=== PATIENT | female | born 1975 | race Caucasian/White ===

== ENCOUNTER 2019-10-13 19:09 | Emergency (ER) | payer MEDICAID ==
[~2019-10-13] VITALS: Ht 170.2 cm; Wt 144.2 kg
[2019-10-13 19:50] VITALS: BP 138/78
--- NOTE | 2019-10-13 20:43 | NUR ---
given dc instruction and undersood pt up ambulated to check out
== END 2019-10-13 20:46 | disposition home or self-care (01) ==
LOC: ED 20:15
DX: M25.571 Pain in right ankle and joints of right foot (principal); M79.89 Other specified soft tissue disorders; K21.9 Gastro-esophageal reflux disease without esophagitis
CPT/HCPCS: 99281

== ENCOUNTER 2019-11-10 21:42 | Emergency (ER) | payer MEDICAID ==
[~2019-11-10] VITALS: Ht 170.2 cm; Wt 143.3 kg
[2019-11-10 23:25] LABS: MICROSCOPIC NOT IND
[2019-11-11 01:17] LABS: BASOPHILS # (AUTO) 0.04 x10^3/uL (0-0.1); BASOPHILS % (AUTO) 1 % (0-1); EOSINOPHILS # (AUTO) 0.15 x10^3/uL (0-0.4); EOSINOPHILS % (AUTO) 2 % (1-7); LYMPHOCYTES # (AUTO) 2.12 x10^3/uL (1-3.4); LYMPHOCYTES % (AUTO) 29 % (22-44); MD NO; MEAN CORPUSCULAR HEMOGLOBIN 25.9 pg (27.0-34.8); MEAN CORPUSCULAR HGB CONC 31.8 g/dL (32.4-35.8); MEAN CORPUSCULAR VOLUME 81.3 fL (80-100); MEAN PLATELET VOLUME 9.9 fL (7.4-10.4); MONOCYTES # (AUTO) 0.45 x10^3/uL (0.2-0.8); MONOCYTES % (AUTO) 6 % (2-9); NEUTROPHILS # (AUTO) 4.46 x10^3/uL (1.8-6.8); NEUTROPHILS % (AUTO) 62 % (42-75); PLATELET COUNT 191 x10^3/uL (130-400); RED BLOOD COUNT 5.04 x10^6/uL (3.82-5.3); RED CELL DISTRIBUTION WIDTH 15.7 % (9.6-15.2)
[2019-11-11 01:26] LABS: ALBUMIN 3.5 g/dL (3.4-5.0); ANION GAP 6 mmol/L (5-15); CALCIUM 9.5 mg/dL (8.5-10.1); CHLORIDE 105 mmol/L (98-107)
[2019-11-11 01:32] LABS: ALANINE AMINOTRANSFERASE 55 U/L (12-78); ALKALINE PHOSPHATASE 150 U/L (45-117); BILIRUBIN,TOTAL 0.5 mg/dL (0.2-1.0); CREATININE 0.75 mg/dL (0.55-1.02)
--- NOTE | 2019-11-11 02:58 | NUR ---
pt to room from lobby
--- NOTE | 2019-11-11 03:04 | NUR ---
First contact w/ pt. Pt presents to ed c/o n/v intermittentxmultiple days. States pain worse right after eating. States pain worse in RLQ. Able to tolerate po intake. Stefanie kang s/s.
[2019-11-11] MEDS ORDERED: ONDANSETRON ODT 4 MG ONE (03:12)
[2019-11-11] MEDS ORDERED: MAALOX/HYOSCYAMINE/LIDOCAINE 45 ML BTL ONE (03:13)
[2019-11-11] MEDS ORDERED: ACETAMINOPHEN 500 MG TABLET ONE (03:13)
[2019-11-11] MEDS ORDERED: MAALOX/HYOSCYAMINE/LIDOCAINE 45 ML BTL PO ONE (03:30)
[2019-11-11] MEDS ORDERED: ONDANSETRON ODT 4 MG PO ONE (03:30)
[2019-11-11] MEDS ORDERED: ACETAMINOPHEN 500 MG TABLET PO ONE (03:30)
[2019-11-11] MEDS ORDERED: ONDANSETRON 2MG/ML, 2ML ONE (03:56)
[2019-11-11] MEDS ORDERED: MORPHINE SULFATE 4 MG/ML, 1ML ONE (03:56)
[2019-11-11] MEDS ORDERED: MORPHINE SULFATE 4 MG/ML, 1ML IVPush PRN (04:00)
[2019-11-11] MEDS ORDERED: ONDANSETRON 2MG/ML, 2ML IVPush ONE (04:00)
[2019-11-11] MEDS ORDERED: OMNIPAQUE 350 MG/ML, 150 ML BOTTLE ONE (04:58)
--- NOTE | 2019-11-11 04:58 | NUR ---
ASSUMING CARE OF PT. FROM MEILNA CURRIE AT THIS. AWAITING CT RESULTS.
[2019-11-11 05:22] VITALS: BP 114/51
== END 2019-11-11 06:13 | disposition home or self-care (01) ==
LOC: ED 11-11 06:07
DX: R10.13 Epigastric pain (principal); R10.11 Right upper quadrant pain; R05 Cough; K76.0 Fatty (change of) liver, not elsewhere classified; E11.9 Type 2 diabetes mellitus without complications; K21.9 Gastro-esophageal reflux disease without esophagitis
CPT/HCPCS: 36415; 74177; 76700; 80053; 81003; 82962; 83690; 84703; 85025; 93005; 96374; 96375; 99284; J2270; J2405; Q0162; Q9967

== ENCOUNTER 2020-05-04 21:33 | Emergency (ER) | payer SELFPAY ==
[~2020-05-04] VITALS: Ht 170.2 cm; Wt 138.0 kg
[2020-05-04] MEDS ORDERED: KETOROLAC 30 MG/1 ML ONE ×2 (22:56→22:57)
[2020-05-04] MEDS ORDERED: PROCHLORPERAZINE 5 MG/ML, 2ML ONE (22:56)
[2020-05-04] MEDS ORDERED: DIPHENHYDRAMINE 25 MG CAPSULE PO ONE (23:00)
[2020-05-04] MEDS ORDERED: KETOROLAC 30 MG/1 ML IM ONE (23:00)
[2020-05-04] MEDS ORDERED: PROCHLORPERAZINE 5 MG/ML, 2ML IM ONE (23:00)
[2020-05-04] MEDS ORDERED: DIPHENHYDRAMINE 25 MG CAPSULE ONE (23:00)
[2020-05-04 23:03] LABS: BASOPHILS # (AUTO) 0.03 x10^3/uL (0-0.1); BASOPHILS % (AUTO) 0 % (0-1); EOSINOPHILS # (AUTO) 0.18 x10^3/uL (0-0.4); EOSINOPHILS % (AUTO) 2 % (1-7); LYMPHOCYTES # (AUTO) 3.01 x10^3/uL (1-3.4); LYMPHOCYTES % (AUTO) 30 % (22-44); MD NO; MEAN CORPUSCULAR HEMOGLOBIN 27.2 pg (27.0-34.8); MEAN CORPUSCULAR HGB CONC 32.9 g/dL (32.4-35.8); MEAN CORPUSCULAR VOLUME 82.7 fL (80-100); MEAN PLATELET VOLUME 9.9 fL (7.4-10.4); MONOCYTES # (AUTO) 0.68 x10^3/uL (0.2-0.8); MONOCYTES % (AUTO) 7 % (2-9); NEUTROPHILS # (AUTO) 6.02 x10^3/uL (1.8-6.8); NEUTROPHILS % (AUTO) 61 % (42-75); PLATELET COUNT 221 x10^3/uL (130-400); RED BLOOD COUNT 4.97 x10^6/uL (3.82-5.3); RED CELL DISTRIBUTION WIDTH 15.8 % (9.6-15.2)
--- NOTE | 2020-05-04 23:10 | NUR ---
Pt medicated per JAN, pt resting comfortably in bed, lights out per request, pending CT scan at this time, NAD noted
[2020-05-04 23:14] LABS: ALANINE AMINOTRANSFERASE 46 U/L (12-78); ALBUMIN 3.4 g/dL (3.4-5.0); ANION GAP 8 mmol/L (5-15); CHLORIDE 104 mmol/L (98-107); CREATININE 0.91 mg/dL (0.55-1.02)
[2020-05-04 23:19] LABS: ALKALINE PHOSPHATASE 149 U/L (45-117); BILIRUBIN,TOTAL 0.3 mg/dL (0.2-1.0); TOTAL PROTEIN 7.4 g/dL (6.4-8.2)
[2020-05-05 00:04] LABS: MICROSCOPIC NOT IND
[2020-05-05 00:44] VITALS: BP 136/66
--- NOTE | 2020-05-05 00:44 | NUR ---
Pt states headache improved and feeling better post medication and rest
== END 2020-05-05 01:25 | disposition home or self-care (01) ==
LOC: ED 23:59
DX: R51 Headache (principal); I21.9 Acute myocardial infarction, unspecified; R00.0 Tachycardia, unspecified; R11.2 Nausea with vomiting, unspecified; E11.9 Type 2 diabetes mellitus without complications; K21.9 Gastro-esophageal reflux disease without esophagitis; M79.7 Fibromyalgia
CPT/HCPCS: 36415; 70450; 80053; 81003; 83690; 84703; 85025; 93005; 96372; 99285; J0780; J1885; Q0163

== ENCOUNTER 2020-05-27 10:13 | Inpatient (IN) | payer MEDICAID, OTHER ==
[~2020-05-27] VITALS: Ht 170.2 cm; Wt 137.8 kg
--- NOTE | 2020-05-27 10:30 | NUR ---
PT HAS CO COUGH, SOB FOR FEW DAYS. OF PT TESTED FOR COVID POSITIVE. DENIES CP, RESPIRATIONS EQUAL AND UNLABORED.
[2020-05-27 11:35] LABS: BASOPHILS # (AUTO) 0.01 x10^3/uL (0-0.1); BASOPHILS % (AUTO) 0 % (0-1); EOSINOPHILS # (AUTO) 0.05 x10^3/uL (0-0.4); EOSINOPHILS % (AUTO) 2 % (1-7); LYMPHOCYTES # (AUTO) 1.06 x10^3/uL (1-3.4); LYMPHOCYTES % (AUTO) 35 % (22-44); MD NO; MEAN CORPUSCULAR HEMOGLOBIN 27.7 pg (27.0-34.8); MEAN CORPUSCULAR HGB CONC 33.7 g/dL (32.4-35.8); MEAN PLATELET VOLUME 9.1 fL (7.4-10.4); MONOCYTES # (AUTO) 0.19 x10^3/uL (0.2-0.8); MONOCYTES % (AUTO) 6 % (2-9); NEUTROPHILS # (AUTO) 1.74 x10^3/uL (1.8-6.8); NEUTROPHILS % (AUTO) 57 % (42-75); PLATELET COUNT 147 x10^3/uL (130-400); RED BLOOD COUNT 4.72 x10^6/uL (3.82-5.3); RED CELL DISTRIBUTION WIDTH 15.7 % (9.6-15.2)
[2020-05-27 11:46] LABS: ALBUMIN 3.5 g/dL (3.4-5.0); ANION GAP 9 mmol/L (5-15); CALCIUM 8.7 mg/dL (8.5-10.1); CHLORIDE 104 mmol/L (98-107)
[2020-05-27 11:50] LABS: ALANINE AMINOTRANSFERASE 50 U/L (12-78); ALKALINE PHOSPHATASE 122 U/L (45-117); BILIRUBIN,TOTAL 0.5 mg/dL (0.2-1.0); TOTAL PROTEIN 6.8 g/dL (6.4-8.2)
--- NOTE | 2020-05-27 11:52 | NUR ---
GAVE PT WATER. WILLS
[2020-05-27] MEDS ORDERED: OMNIPAQUE 350 MG/ML, 75ML BOTTLE ONE (12:52)
[2020-05-27 14:55] VITALS: BP 132/93
[2020-05-27] MEDS ORDERED: LANS30CA60 PO (15:08)
[2020-05-27] MEDS ORDERED: MULT-516 PO (15:08)
[2020-05-27] MEDS ORDERED: CETI10CA PO (15:08)
[2020-05-27] MEDS ORDERED: LAMO100T5 PO (15:08)
[2020-05-27] MEDS ORDERED: CHOL10003 PO (15:08)
[2020-05-27] MEDS ORDERED: TOPI25TA32 PO (15:10)
[2020-05-27] MEDS ORDERED: GUAIFENESIN/DM 200-20MG, 10ML UDC PO PRN (15:30)
[2020-05-27] MEDS ORDERED: BUTALB/APAP/CAFFEINE 50MG/325MG/40MG PO PRN (15:30)
[2020-05-27] MEDS ORDERED: BACLOFEN 10 MG TABLET PO PRN (15:30)
[2020-05-27] MEDS ORDERED: LABETALOL 5MG/ML, 20ML IVPush PRN (15:30)
[2020-05-27] MEDS ORDERED: ONDANSETRON ODT 4 MG PO PRN (15:30)
[2020-05-27] MEDS ORDERED: hydrALAzine 20 MG/ML, 1ML IVPush PRN (15:30)
[2020-05-27] MEDS ORDERED: MELATONIN 5 MG TABLET PO PRN (15:30)
[2020-05-27] MEDS ORDERED: TOPIRAMATE 25 MG TABLET PO PRN (16:00)
[2020-05-27] MEDS: ENOXAPARIN 40 MG/0.4 ML SQ SCH (16:46)
[2020-05-27] MEDS: ASCORBATE SODIUM 3,000 MG in SODIUM CHLORIDE 0.9% 250 ML IVPB SCH ×2 (16:57→22:59)
[2020-05-27] MEDS: INSULIN LISPRO 100 UNITS/ML, PEN SQ-INSULIN SCH ×2 (16:57→20:40)
[2020-05-27 19:02] VITALS: BP_SYST 124; BP_SYST 131; BP_DIAS 79
[2020-05-27] MEDS: BUTALB/APAP/CAFFEINE 50MG/325MG/40MG PO PRN (19:35)
[2020-05-27] MEDS: CETIRIZINE 10 MG TABLET PO SCH (19:37)
[2020-05-27] MEDS: LAMOTRIGINE 100 MG TABLET PO SCH (19:37)
[2020-05-28] MEDS: BUTALB/APAP/CAFFEINE 50MG/325MG/40MG PO PRN ×5 (00:12→22:47)
[2020-05-28 01:25] VITALS: BP 115/60
[2020-05-28] MEDS: PANTOPRAZOLE 40MG TABLET PO SCH (04:49)
[2020-05-28] MEDS: ASCORBATE SODIUM 3,000 MG in SODIUM CHLORIDE 0.9% 250 ML IVPB SCH ×4 (04:49→22:47)
[2020-05-28 05:50] LABS: BASOPHILS # (AUTO) 0.01 x10^3/uL (0-0.1); BASOPHILS % (AUTO) 0 % (0-1); EOSINOPHILS # (AUTO) 0.04 x10^3/uL (0-0.4); EOSINOPHILS % (AUTO) 1 % (1-7); LYMPHOCYTES # (AUTO) 0.97 x10^3/uL (1-3.4); LYMPHOCYTES % (AUTO) 30 % (22-44); MD NO; MEAN CORPUSCULAR HEMOGLOBIN 27.7 pg (27.0-34.8); MEAN CORPUSCULAR HGB CONC 33.8 g/dL (32.4-35.8); MEAN PLATELET VOLUME 9.4 fL (7.4-10.4); MONOCYTES # (AUTO) 0.33 x10^3/uL (0.2-0.8); MONOCYTES % (AUTO) 10 % (2-9); NEUTROPHILS # (AUTO) 1.95 x10^3/uL (1.8-6.8); NEUTROPHILS % (AUTO) 59 % (42-75); PLATELET COUNT 137 x10^3/uL (130-400); RED BLOOD COUNT 4.57 x10^6/uL (3.82-5.3); RED CELL DISTRIBUTION WIDTH 15.8 % (9.6-15.2)
[2020-05-28 05:57] LABS: CHLORIDE 104 mmol/L (98-107)
[2020-05-28 06:04] LABS: ALANINE AMINOTRANSFERASE 50 U/L (12-78); ALBUMIN 3.3 g/dL (3.4-5.0); ALKALINE PHOSPHATASE 116 U/L (45-117); ANION GAP 9 mmol/L (5-15); BILIRUBIN,TOTAL 0.5 mg/dL (0.2-1.0); CALCIUM 8.8 mg/dL (8.5-10.1); TOTAL PROTEIN 6.6 g/dL (6.4-8.2)
[2020-05-28] MEDS: ZINC SULFATE 220 MG CAPSULE PO SCH (07:52)
[2020-05-28] MEDS: SENNA/DOCUSATE TABLET PO SCH (07:52)
[2020-05-28] MEDS: CHOLECALCIFEROL 5,000u TAB PO SCH (07:52)
[2020-05-28] MEDS: INSULIN LISPRO 100 UNITS/ML, PEN SQ-INSULIN SCH ×4 (07:58→20:26)
[2020-05-28 08:19] VITALS: BP 146/105
[2020-05-28 12:34] VITALS: BP 137/90
[2020-05-28] MEDS: ENOXAPARIN 40 MG/0.4 ML SQ SCH (16:13)
[2020-05-28 19:05] VITALS: BP 138/76
[2020-05-28] MEDS: CETIRIZINE 10 MG TABLET PO SCH (20:18)
[2020-05-28] MEDS: LAMOTRIGINE 100 MG TABLET PO SCH (20:18)
[2020-05-29] MEDS ORDERED: DIPHENHYDRAMINE 50 MG/ML, 1ML ONE (00:26)
[2020-05-29] MEDS ORDERED: METOCLOPRAMIDE 5 MG/ML, 2ML ONE (00:26)
[2020-05-29] MEDS ORDERED: KETOROLAC 30 MG/1 ML ONE (00:26)
[2020-05-29] MEDS ORDERED: METOCLOPRAMIDE 5 MG/ML, 2ML IVPush ONE (00:30)
[2020-05-29] MEDS ORDERED: DIPHENHYDRAMINE 50 MG/ML, 1ML IVPush ONE (00:30)
[2020-05-29] MEDS ORDERED: KETOROLAC 30 MG/1 ML IVPush ONE (00:30)
[2020-05-29 00:31] VITALS: BP 127/79
[2020-05-29] MEDS: ASCORBATE SODIUM 3,000 MG in SODIUM CHLORIDE 0.9% 250 ML IVPB SCH ×4 (05:00→23:11)
[2020-05-29] MEDS: PANTOPRAZOLE 40MG TABLET PO SCH (05:25)
[2020-05-29 07:34] VITALS: BP 143/95
[2020-05-29] MEDS: ZINC SULFATE 220 MG CAPSULE PO SCH (07:50)
[2020-05-29] MEDS: INSULIN LISPRO 100 UNITS/ML, PEN SQ-INSULIN SCH ×4 (07:50→21:53)
[2020-05-29] MEDS: SENNA/DOCUSATE TABLET PO SCH (07:50)
[2020-05-29] MEDS: CHOLECALCIFEROL 5,000u TAB PO SCH (07:50)
[2020-05-29] MEDS: ACETAMINOPHEN 325 MG TABLET PO PRN ×2 (09:45→21:59)
[2020-05-29 12:23] VITALS: BP 136/91
[2020-05-29] MEDS: metFORMIN 500 MG TABLET PO SCH ×2 (13:10→16:44)
[2020-05-29] MEDS: BUTALB/APAP/CAFFEINE 50MG/325MG/40MG PO PRN ×2 (15:35→23:18)
[2020-05-29] MEDS: ONDANSETRON 2MG/ML, 2ML IVPush PRN (15:35)
[2020-05-29] MEDS: ENOXAPARIN 40 MG/0.4 ML SQ SCH (16:44)
[2020-05-29 18:57] VITALS: BP 141/80
[2020-05-29] MEDS: LAMOTRIGINE 100 MG TABLET PO SCH (21:51)
[2020-05-29] MEDS: CETIRIZINE 10 MG TABLET PO SCH (21:52)
[2020-05-30] MEDS: ONDANSETRON 2MG/ML, 2ML IVPush PRN ×2 (00:25→13:30)
[2020-05-30 00:28] VITALS: BP 128/77
[2020-05-30] MEDS: ASCORBATE SODIUM 3,000 MG in SODIUM CHLORIDE 0.9% 250 ML IVPB SCH ×2 (05:34→11:08)
[2020-05-30] MEDS: PANTOPRAZOLE 40MG TABLET PO SCH (05:34)
[2020-05-30] MEDS: BUTALB/APAP/CAFFEINE 50MG/325MG/40MG PO PRN (05:57)
[2020-05-30] MEDS: INSULIN LISPRO 100 UNITS/ML, PEN SQ-INSULIN SCH ×2 (07:40→11:10)
[2020-05-30 08:06] VITALS: BP 133/86
[2020-05-30] MEDS: ZINC SULFATE 220 MG CAPSULE PO SCH (09:17)
[2020-05-30] MEDS: SENNA/DOCUSATE TABLET PO SCH (09:17)
[2020-05-30] MEDS: metFORMIN 500 MG TABLET PO SCH (09:17)
[2020-05-30] MEDS: CHOLECALCIFEROL 5,000u TAB PO SCH (09:17)
[2020-05-30] MEDS ORDERED: CHOL500045 PO (10:33)
[2020-05-30] MEDS ORDERED: METF500T PO (10:33)
[2020-05-30] MEDS ORDERED: MELA5TAB14 PO (10:33)
[2020-05-30] MEDS ORDERED: ASCO500T9 PO (10:33)
[2020-05-30] MEDS ORDERED: ZINC220C7 PO (10:33)
[2020-05-30] MEDS: ACETAMINOPHEN 325 MG TABLET PO PRN (12:29)
[2020-05-30 15:14] VITALS: BP 147/91
== END 2020-05-30 15:44 | disposition home or self-care (01) | DRG 178 ==
LOC: ED 11:31 → EDIP 13:41 → 4NW 14:28
PROVIDERS: ADMIT Family Medicine; ATTEND Family Medicine
DX: U07.1 COVID-19 (principal); E87.1 Hypo-osmolality and hyponatremia; Z68.42 Body mass index [BMI] 45.0-49.9, adult; D72.819 Decreased white blood cell count, unspecified; E11.65 Type 2 diabetes mellitus with hyperglycemia; E66.01 Morbid (severe) obesity due to excess calories; Z59.0 Homelessness; Z88.8 Allergy status to other drugs, medicaments and biological substances; R91.8 Other nonspecific abnormal finding of lung field; G43.909 Migraine, unspecified, not intractable, without status migrainosus
CPT/HCPCS: 36415; 71045; 71275; 80053; 82962; 83735; 85025; 87040; 87635; 93005; 99285; G0378; J1650; J1885; J2405; Q0162; Q9967; J1200; J1815; J2765; J7050